=== PATIENT | male | born 1945 | race Caucasian/White ===

== ENCOUNTER 2022-09-21 05:35 | Inpatient (IN) ==
[~2022-09-21 05:35] MED LIST: ceFAZolin 1,000 MG VIAL ONE
[2022-09-21] MEDS ORDERED: LACTATED RINGERS 1,000 ML IV SCH (06:00)
[2022-09-21] MEDS ORDERED: FAMOTIDINE 20 MG TABLET PO ONE (07:02)
[2022-09-21] MEDS ORDERED: DIAZEPAM 5 MG TABLET ONE (07:04)
[2022-09-21] MEDS ORDERED: DIAZEPAM 5 MG TABLET PO STA (07:06)
[2022-09-21] MEDS ORDERED: INDOCYANINE GREEN 25 MG VIAL IV ONE ×2 (09:03→09:06)
[2022-09-21] MEDS ORDERED: ROCURONIUM 50 MG/5 ML VIAL IV ONE (10:03)
[2022-09-21] MEDS ORDERED: LIDOCAINE 2% 5 ML VIAL ONE (10:03)
[2022-09-21] MEDS ORDERED: ONDANSETRON 4 MG/2 ML VIAL ONE (10:03)
[2022-09-21] MEDS ORDERED: propofoL 200 MG/20 ML VIAL IV ONE (10:03)
[2022-09-21] MEDS ORDERED: MIDAZOLAM 2 MG/2 ML VIAL ONE (10:04)
[2022-09-21] MEDS ORDERED: fentaNYL 100 MCG/2 ML VIAL ONE ×2 (10:04→11:30)
[2022-09-21] MEDS ORDERED: ETOMIDATE 40 MG/20 ML VIAL IV ONE (10:26)
[2022-09-21] MEDS ORDERED: SEVOFLURANE 1 UNIT/15 MINUTE INH ONE ×6 (10:26→11:49)
[2022-09-21] MEDS ORDERED: TISSUE ADHESIVE 1 EACH APPLICATOR TOP ONE (10:29)
[2022-09-21] MEDS ORDERED: NEOSTIGMINE 10 MG/10 ML VIAL ONE (10:55)
[2022-09-21] MEDS ORDERED: GLYCOPYRROLATE 0.4 MG/2 ML VIAL ONE (10:55)
[2022-09-21] MEDS ORDERED: ACETAMINOPHEN INJ 1,000 MG/100 ML VIAL IV ONE (10:58)
[2022-09-21] MEDS ORDERED: HYDROmorphone 1 MG/1 ML SYRINGE IV PRN ×2 (11:43)
[2022-09-21] MEDS ORDERED: BISACODYL 5 MG TABLET PO PRN (11:43)
[2022-09-21] MEDS ORDERED: ACETAMINOPHEN 325 MG TABLET PO PRN (11:43)
[2022-09-21] MEDS ORDERED: ONDANSETRON 4 MG/2 ML VIAL IV PRN (12:09)
[2022-09-21] MEDS ORDERED: MEPERIDINE 25 MG/1 ML VIAL IV PRN (12:09)
[2022-09-21] MEDS ORDERED: KETOROLAC 30 MG/1 ML VIAL ONE (12:14)
[2022-09-21] MEDS: KETOROLAC 15 MG/1 ML VIAL IV SCH ×3 (12:15→23:30)
[2022-09-21] MEDS: HYDROmorphone 1 MG/1 ML SYRINGE IV PRN ×2 (12:23→12:36)
[2022-09-21] MEDS: carvediloL 12.5 MG TABLET PO SCH (17:10)
[2022-09-21] MEDS: LACTATED RINGERS 1,000 ML IV SCH ×2 (17:12→20:01)
[2022-09-22] MEDS: ONDANSETRON 4 MG/2 ML VIAL IV PRN ×2 (02:38→15:49)
[2022-09-22 05:04] LABS: Basophils % 0.3 % (0.0-0.8); Eosinophils # 0.1 10*3/uL (0.0-0.87); Eosinophils % 0.9 % (0.00-10.9); Hematocrit 38.8 VOL% (42.0-52.0); Hemoglobin 12.9 GM/DL (14.0-18.0); Immature Granulocytes % 0.5 %; Immature Granulocytes Absolute 0.06 #; Lymphocytes # 1.2 10*3/uL (1.4-4.0); Lymphocytes % 10.4 % (21.2-54.2); Mean Corpuscular HGB Conc 33.2 GM/DL (32-36); Mean Corpuscular Volume 98.5 FL (87-102); Mean Platelet Volume 8.9 FL (9.6-12.0); Monocytes # 0.5 10*3/uL (0.11-0.8); Monocytes % 4.5 % (1.7-12.7); Neutrophils % 83.4 % (38.7-73.9); Platelet Count 245 T/CUMM (130-400); Red Blood Count 3.94 MC/CUMM (3.8-5.5); Red Cell Distribution Width 11.9 % (9.3-17.3); White Blood Count 11.2 T/CUMM (4-12)
[2022-09-22] MEDS: ENOXAPARIN 40 MG/0.4 ML SYRINGE SUBCUT SCH (05:27)
[2022-09-22] MEDS: KETOROLAC 15 MG/1 ML VIAL IV SCH ×4 (05:27→23:16)
[2022-09-22] MEDS: LACTATED RINGERS 1,000 ML IV SCH (05:31)
[2022-09-22 05:44] LABS: Albumin 3.1 G/DL (3.4-5.0); Bilirubin,Total 0.6 MG/DL (0.20-1.00); Calcium 8.1 MG/DL (8.5-10.1); Osmolality,Calculated 284.3 MOS/KG (273-304); Total Protein 6.1 G/DL (6.4-8.2)
[2022-09-22] MEDS: carvediloL 12.5 MG TABLET PO SCH ×2 (08:34→18:05)
[2022-09-22] MEDS: PANTOPRAZOLE 40 MG TABLET PO SCH (08:34)
[2022-09-22] MEDS: ASPIRIN EC 81 MG TABLET PO SCH (08:35)
[2022-09-22] MEDS: BICALUTAMIDE 50 MG TABLET PO SCH (20:56)
[2022-09-23] MEDS: ENOXAPARIN 40 MG/0.4 ML SYRINGE SUBCUT SCH (05:09)
[2022-09-23] MEDS: KETOROLAC 15 MG/1 ML VIAL IV SCH ×3 (05:09→17:39)
[2022-09-23] MEDS: ASPIRIN EC 81 MG TABLET PO SCH (08:55)
[2022-09-23] MEDS: carvediloL 12.5 MG TABLET PO SCH ×2 (08:56→17:39)
[2022-09-23] MEDS: PANTOPRAZOLE 40 MG TABLET PO SCH (08:56)
[2022-09-23] MEDS: BICALUTAMIDE 50 MG TABLET PO SCH (21:33)
[2022-09-24] MEDS: KETOROLAC 15 MG/1 ML VIAL IV SCH ×2 (01:00→05:56)
[2022-09-24] MEDS: ENOXAPARIN 40 MG/0.4 ML SYRINGE SUBCUT SCH (05:56)
[2022-09-24] MEDS: PANTOPRAZOLE 40 MG TABLET PO SCH (08:43)
[2022-09-24] MEDS: ASPIRIN EC 81 MG TABLET PO SCH (08:43)
[2022-09-24] MEDS: carvediloL 12.5 MG TABLET PO SCH (08:43)
[2022-09-24 12:07] VITALS: BP 119/58
== END 2022-09-24 14:11 | disposition home or self-care (01) | DRG 415 ==
LOC: N.OR 05:35 → N.SDSINP 05:35 → N.ADMINP 11:42 → N.3E 13:31 → EDSDCBED 13:31 → N.OR 09-24 14:11 → UNDODEPSDC 09-26 09:46
PROVIDERS: ADMIT Surgery; ATTEND Surgery